=== PATIENT | female | born 1955 | race Caucasian/White ===

== ENCOUNTER → 2024-04-26 10:45 | Outpatient (REF) | payer MEDICARE, BC, SELFPAY | LOC: WDC 10:45 | PROVIDERS: ATTENDING PHYSICIAN Nurse Practitioner Adult Health; FAMILY PHYSICIAN Family Medicine | DX: Z12.31 Encounter for screening mammogram for malignant neoplasm of breast (principal) | CPT/HCPCS: 77063; 77067 ==

== ENCOUNTER → 2024-06-06 07:06 | Outpatient (REF) | payer MEDICARE, BC, SELFPAY | LOC: RAD 07:06 | PROVIDERS: ATTENDING PHYSICIAN Family Medicine | DX: M79.605 Pain in left leg (principal) | CPT/HCPCS: 93971 ==

== ENCOUNTER → 2025-04-30 07:40 | Outpatient (REF) | payer MEDICARE, BC, SELFPAY | LOC: WDC 07:40 | PROVIDERS: ATTENDING PHYSICIAN Nurse Practitioner Adult Health; FAMILY PHYSICIAN Family Medicine | DX: Z12.31 Encounter for screening mammogram for malignant neoplasm of breast (principal) | CPT/HCPCS: 77063; 77067 ==